=== PATIENT | female | born 1995 | race American Indian/Alaskan Native ===

== ENCOUNTER 2019-11-30 07:49 | Emergency (ER) | payer SELFPAY ==
--- NOTE | 2019-11-30 08:28 | Emergency Department Report ---
<SANDEE MORA - Last Filed: 11/30/19 10:29> ED Psych HPI - General Chief Complaint: Psych Stated Complaint: MH Time Seen by Provider: 11/30/19 08:19 Source: EMS Mode of arrival: Ambulatory - History of Present Illness Initial Comments: 24 yo F presents to ED for mental health evaluation. Per EMS, patient's father states patient has been acting bizarre for 3 last days. EMS was contacted because patient was outside this morning, yelling loudly and calling out random colors, shapes, and rapping. Patient currently able to tell me her name, , a ge. She denies hallucinations, SI, HI. Pt currently A&O x 3. Admits to recent marijuana use. Denies any other drugs. Unknown psych history. MD Complaint: altered mental status -: days(s) (3) Improves With: none Worsens With: none Context: recent drug abuse Associated Symptoms: denies other symptoms Treatments Prior to Arrival: none - Related Data Allergies Allergy/AdvReac Type Severity Reaction Status Date / Time No Known Allergies Allergy Unverified 11/30/19 08:14 ED Review of Systems Comment: All other systems reviewed and negative Psychiatric: denies: auditory hallucinations, visual hallucinations, homicidal thoughts, suicidal thoughts ED Past Medical Hx - Past Medical History Previous Medical History?: Yes Hx Psychiatric Treatment: Yes - Surgical History Past Surgical History?: No ED Physical Exam - General Limitations: Altered Mental Status General appearance: alert, in no apparent distress - Head Head exam: Present: atraumatic, normocephalic - Eye Eye exam: Present: normal appearance, EOMI - ENT ENT exam: Present: mucous membranes moist - Neck Neck exam: Present: normal inspection - Respiratory Respiratory exam: Present: normal lung sounds bilaterally. Absent: respiratory distress - Cardiovascular Cardiovascular Exam: Present: regular rate, normal rhythm - GI/Abdominal GI/Abdominal exam: Absent: distended - Extremities Exam Extremities exam: Present: normal inspection - Neurological Exam Neurological exam: Present: alert, oriented X3, CN II-XII intact. Absent: motor sensory deficit - Psychiatric Psychiatric exam: Present: normal affect, normal mood - Skin Skin exam: Present: warm, dry, intact, normal color ED Medical Decision Making - Lab Data Result diagrams: 11/30/19 08:38 11/30/19 08:38 ED Disposition Clinical Impression: Acute psychosis, Hypokalemia, Dehydration, Cannabis use disorder, severe, dependence, Schizophrenia, acute, Medical clearance for psychiatric admission Disposition: [id number]/[id number] PSY HOSP/PSY UNIT Condition: Stable Referrals: PRIMARY CARE, [Primary Care Provider] - 3-5 Days <IGNACIO GALDAMEZ - Last Filed: 12/01/19 10:54> ED Review of Systems ROS: Stated complaint: MH Other details as noted in HPI ED Course Vital Signs 11/30/19 11/30/19 12/01/19 08:10 19:45 01:35 Temperature 98.4 F 98.1 F 98.6 F Pulse Rate 79 85 100 H Respiratory 16 18 18 Rate Blood Pressure 114/76 131/79 120/60 [Left] O2 Sat by Pulse 99 99 100 Oximetry 12/01/19 12/01/19 07:32 08:09 Temperature 98.2 F Pulse Rate 88 Respiratory 20 20 Rate Blood Pressure 138/84 [Left] O2 Sat by Pulse 100 100 Oximetry - Reevaluation(s) Reevaluation #1: 12/01/19 07:50 Nurse Elvia approached me that [facility] cannot place patient due to mild elevation WBC count and hypokalemia. Patient received p.o. potassium 60 mEq p.o. x1 yesterday. Urine appears to show signs of dehydration given elevated specific gravity and ketosis. Urine negative for infection. Patient is afebrile here. However, chest x-ray ordered to rule out acute infection I ordered additional p.o. potassium 40 mEq this a.m. ED physician and mental alth dextrine mixer notes reviewed. This appears to be new onset psychosis without reported history of psychiatric disease. CT head ordered. Additional p.o. potassium ordered with repeat CBC, BMP, and magnesium to be performed. 12/01/19 10:53 After IV hydration and p.o. potassium repeat CBC is normal. BMP and magnesium are normal. There are no signs of active infection. Chest x-ray is normal. An d CT head is unremarkable. [facility] requested a signed 1013. Patient is medically clear for psychiatric admission ED Medical Decision Making - Lab Data Result diagrams: 12/01/19 09:43 12/01/19 09:43 - Radiology Data Radiology results: report reviewed CHEST 2 VIEWS INDICATION: new onset psychosis, mild wbc incr. COMPARISON: None available FINDINGS: Support devices: None. Heart: Within normal limits. Lungs/pleura: No acute air space or interstitial disease. No pneumothorax. Additional findings: None. IMPRESSION: Normal chest x-ray CT HEAD WITHOUT CONTRAST INDICATION / CLINICAL INFORMATION: new onset psychosis. TECHNIQUE: Axial imaging performed from the skull apex through the skull base without the use of contrast. Sagittal and coronal reformatted images. All CT scans at this location are performed us ing CT dose reduction for ALARA by means of automated exposure control. COMPARISON: None available. FINDINGS: CEREBRAL PARENCHYMA: No significant abnormality. No acute territorial infarct. HEMORRHAGE: None. EXTRA-AXIAL SPACES: Normal in size and morphology for the patient's age. VENTRICULAR SYSTEM: Normal in size and morphology for the patient's age. MIDLINE SHIFT OR HERNIATION: None. CEREBELLUM / BRAINSTEM: No si gnificant abnormality. CALVARIUM: No significant abnormality. ORBITS: Normal as visualized. PARANASAL SINUSES / MASTOID AIR CELLS: Normal as visualized. SOFT TISSUES of HEAD: No significant abnormality. ADDITIONAL FINDINGS: None. IMPRESSION: Normal CT brain. Critical care attestation.: If time is entered above; I have spent that time in minutes in the direct care of this critically ill patient, excluding procedure time. ED Disposition Is pt being admited?: No Does the pt Need Aspirin: No
[2019-11-30 08:54] LABS: Basophils # (Auto) 0.1 K/mm3 (0.0-0.1); Basophils % (Auto) 0.6 % (0.0-1.8); Eosinophils % (Auto) 0.2 % (0.0-4.3); Hematocrit 39.7 % (30.3-42.9); Lymphocytes # (Auto) 1.9 K/mm3 (1.2-5.4); Lymphocytes % (Auto) 13.9 % (13.4-35.0); Mean Corpuscular HGB Conc 33 % (30-34); Mean Corpuscular Volume 86 fl (79-97); Monocytes # (Auto) 0.9 K/mm3 (0.0-0.8); Monocytes % (Auto) 6.6 % (0.0-7.3); Platelet Count 238 K/mm3 (140-440); Red Blood Count 4.63 M/mm3 (3.65-5.03); Red Cell Distribution Width 13.8 % (13.2-15.2)
[2019-11-30 09:14] LABS: BUN/Creatinine Ratio 13; Blood Urea Nitrogen 9 mg/dL (7-17); Hemolysis Index 3
[2019-11-30] MEDS ORDERED: POTASSIUM CHLORIDE ER 20 MEQ TAB PO ONE (09:22)
[2019-11-30 10:50] LABS: Bilirubin,Urine NEG (Negative); Blood,Urine SM (Negative); Color,Urine Amber (Yellow); Mucus,Urine 3+ /HPF
[2019-11-30 10:57] LABS: Amphetamine Screen,Urine PRESUMPTIVE NEGATIVE; Benzodiazepines Screen,Urine PRESUMPTIVE NEGATIVE; Cocaine Screen,Urine PRESUMPTIVE NEGATIVE; Methadone Screen,Urine PRESUMPTIVE NEGATIVE; Opiate Screen,Urine PRESUMPTIVE NEGATIVE
[2019-11-30 11:28] LABS: Cannabinoid Screen,Urine PRESUMPTIVE POSITIVE
[2019-11-30] MEDS ORDERED: LORazepam 2 MG/ML VIAL IM ONE (15:54)
[2019-12-01] MEDS ORDERED: POTASSIUM CHLORIDE ER 20 MEQ TAB PO ONE (07:44)
[2019-12-01] MEDS ORDERED: SODIUM CHLORIDE 0.9% 1000 ML 1,000 ML IV ONE (07:46)
--- NOTE | 2019-12-01 08:06 | XRay Report ---
CHEST 2 VIEWS INDICATION: new onset psychosis, mild wbc incr. COMPARISON: None available FINDINGS: Support devices: None. Heart: Within normal limits. Lungs/pleura: No acute air space or interstitial disease. No pneumothorax. Additional findings: None. IMPRESSION: Normal chest x-ray Signer Name: Eleno Banerjee Jr, MD Signed: 12/01/2019 8:02 AM Workstation Name: [id number]
--- NOTE | 2019-12-01 08:53 | Cat Scan Report ---
CT HEAD WITHOUT CONTRAST INDICATION / CLINICAL INFORMATION: new onset psychosis. TECHNIQUE: Axial imaging performed from the skull apex through the skull base without the use of cont rast. Sagittal and coronal reformatted images. All CT scans at this location are performed using CT dose reduction for ALARA by means of automated exposure control. COMPARISON: None available. FINDINGS: CEREBRAL PARENCHYMA: No significant abnormality. No acute territorial infarct. HEMORRHAGE: None. EXTRA-AXIAL SPACES: Normal in size and morphology for the patient's age. VENTRICULAR SYSTEM: Normal in size and morphology for the patient's age. MIDLINE SHIFT OR HERNIATION: None. CEREBELLUM / BRAINSTEM: No significant abnormality. CALVARIUM: No significant abnormality. ORBITS: Normal as visualized. PARANASAL SINUSES / MASTOID AIR CELLS: Normal as visualized. SOFT TISSUES of HEAD: No significant abnormality. ADDITIONAL FINDINGS: None. IMPRESSION: Normal CT brain. Signer Name: Eleno Banerjee Jr, MD Signed: 12/01/2019 8:49 AM Workstation Name: [id number]
--- NOTE | 2019-12-01 10:03 | Consultation ---
History of Present Illness - Reason for Consult Consult date: 12/01/19 Reason for consult: MHE Requesting physician: SANDEE MORA - Chief Complaint Chief complaint: Bizarre Behavior - History of Present Psychiatric Illness Per ED provider Note: 24 yo F presents to ED for mental health evaluation. Per EMS, patient's father states patient has been acting bizarre for 3 last days. EMS was contacted because patient was outside this morning, yelling loudly and calling out random colors, shapes, and rapping. Patient currently able to tell me her name, , age. She denies hallucinations, SI, HI. Pt currently A&O x 3. Admits to recent marijuana use. Denies any other drugs. Unknown psych history. Per [facility]: Pt is a 24 yo AA female presenting to ED for MHE, as collateral reported acute psychosis. During ax, pt presented as hyperverbal, with cooperative behaviors, anxious mood and incongruent affect. Pt reports that she is at [facility] due to "an interrupted cycle in her work life". Pt unable to identify triggers or explain why she is in the ED. Pt denies hx of attempts. Pt denies HI. Pt denies A/V H. Pt denies hx of mental health dx. According to collateral, pt was missing from home for three days. When the pt returned, she was shouting out shapes, screaming, and rapping. Pt reports using marijuana. Onset, use, and duration unknown. Pt reports using alcohol but states "I like the marijuana better". identified heroine abuse, reporting less than one gram daily. Pt reports onset age of 19. Pt identified cocaine abuse; unknown amount daily. Pt reports living with her father. Pt reports employment with [email or web address]. Psych HPI Patient is a 24-year-old single employed -[place] female with past psychiatric history of depression, anxiety and bipolar status post medication noncompliance who presented to the ED with with family with chief complaint of bizarre behavior. Patient states that she is here because she displayed certain characteristic type of behavior that other people are not familiar with. She reports yesterday, she put on some very nice shoes and colorful dresses and did not know where she was going, noting that she was also hearing voices and other things like people giving her directions. She also reports seeing things snapping into 2 places. Patient recollects that she was in a type of mental state the most people do not understand. Patient reports she was feeling wonderful but now she feels peaceful. 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 She reports lots of random thoughts, says she is easily distracted because she get bored quite often, denies any changes in traction denies any guilty feelings. Patient endorses poor sleep and appetite. Patient reports she has indeed in the past been prescribed some psychiatric medication but has not been taking it because she feels like the process of getting something that is supposed to help you was just too much hence why she takes marijuana instead PAST PSYCHIATRIC HISTORY Diagnoses: Depression, anxiety and Bipolar Suicide attempts or Self-harm behavior: Yes, took many pills Prior psychiatric hospitalizations: Yes Substance Abuse history: Marijuana Previous psychiatric medications tried: Unknwn/non compliant Outpatient treatment: None reported PAST MEDICAL HISTORY: None Family Psychiatric History: None reported or documented SOCIAL HISTORY Marital Status: Single Living Arrangements: Lives with family Employment Status: employed forepart [employer] Access to guns/weapons: None Education: High school History of Abuse: Emotional (family) Legal History: None REVIEW OF SYSTEMS Constitutional: Negative for weight loss ENT: Negative for stridor Respiratory: Negative for cough or hemoptysis All other systems reviewed and are negative MENTAL STATUS EXAMINATION General Appearance and Behavior: Age appropriate, good hygiene, wearing appropriate clothes, lying in bed, good eye contact, cooperative with questioning and polite Cooperation: Participating/engaged, Cooperative Psychomotor Behavior: unremarkable and within normal limits Mood: Wonderful and now peaceful Affect and affective range: Euthymic Thought Process: Loose associations Thought Content: Flight of ideas, Illogical, Grandiose, and delusions Speech: low volume, Regular rate and rhythm Intellectual Functioning: Average Suicidal Ideation: Denies SI Homicidal Ideation: Denies HI Impulse Control: Unimpaired Insight and Judgment: Limited insight and judgment, Impaired Memory: Normal Attention: Normal Orientation: Alert, oriented Assessment and Plan - Psychiatric problem (1) Substance induced mood disorder Current Visit: Yes Status: Acute (2) Cannabis use disorder, severe, dependence Current Visit: Yes Status: Acute (3) Schizophrenia, acute Current Visit: Yes Status: Acute RECOMMENDATIONS MEDICATIONS: Started on Abilify 10 mg QD Risks, benefits and alternatives of medications discussed with the patient, questions answered and consent obtained from patient. PSYCHOTHERAPY: Supportive psychotherapy provided MEDICAL: Per primary team DELIRIUM PRECAUTIONS: Please re-orient patient frequently, keep lights on during the day, and minimize benzodiazepines and opiates as these medications could worsen patient's confusion. BEADER TENDER: Per Medical team DISPOSITION: Recommends acute inpatient psychiatric hospitalization at this time LEGAL STATUS: 1013 FOLLOW-UP: Will follow Thank you for the consult. Please contact with any questions and/or concerns. Medications and Allergies Allergies Allergy/AdvReac Type Severity Reaction Status Date / Time No Known Allergies Allergy Unverified 11/30/19 08:14 Mental Status Exam - Vital signs Last Vital Signs Temp 98.2 F 12/01/19 07:32 Pulse 88 12/01/19 07:32 Resp 20 12/01/19 08:09 BP 138/84 12/01/19 07:32 Pulse Ox 100 12/01/19 08:09 Results Result Diagrams: 11/30/19 08:38 11/30/19 08:38 Abnormal lab results 11/30/19 Range/Units 10:35 Ur Specific [place] 1.032 H (1.003-1.030) All other labs normal. Assessment and Plan - Psychiatric problem (1) Substance induced mood disorder Current Visit: Yes Status: Acute (2) Cannabis use disorder, severe, dependence Current Visit: Yes Status: Acute (3) Schizophrenia, acute Current Visit: Yes Status: Acute
[2019-12-01 10:15] LABS: Hematocrit 37.3 % (30.3-42.9); Hemoglobin 12.2 gm/dl (10.1-14.3); Mean Corpuscular HGB Conc 33 % (30-34); Mean Corpuscular Volume 87 fl (79-97); Platelet Count 208 K/mm3 (140-440); Red Blood Count 4.32 M/mm3 (3.65-5.03); Red Cell Distribution Width 13.8 % (13.2-15.2)
[2019-12-01 10:33] LABS: BUN/Creatinine Ratio 11; Blood Urea Nitrogen 8 mg/dL (7-17); Calcium 9.4 mg/dL (8.4-10.2); Hemolysis Index 10
[2019-12-01] MEDS: ARIPiprazole 10 MG TAB PO SCH (11:59)
[2019-12-02] MEDS: ARIPiprazole 10 MG TAB PO SCH (09:29)
[2019-12-02] MEDS ORDERED: ZIPRASIDONE MESYLATE 20 MG VIAL IM ONE (09:49)
[2019-12-02] MEDS ORDERED: WATER FOR INJ Sterile (PF) 10 ML ONE (09:52)
--- NOTE | 2019-12-02 14:16 | Progress Note ---
Subjective - Reason for Consult Consult date: 12/02/19 Reason for consult: psychosis - Chief Complaint Chief complaint: The patient's medical record was reviewed and the patient's progress was discussed with the nursing staff. During my interview with the patient today, she is lying in the bed. She makes fair eye contact. She is a/o x 3. She repeats some questions back to me before answering. She is responding to internal stimuli. She tells me she came to the ER because she was "looking for an evaluation." She describes her mood as, "calm, cool." When asked about suicidal thoughts, the patient replied, "today I'm suicidal. I've cried. My emotions are everywhere." She then says, "I need stabilizing treatment." The patient says "I see numbers and hear voices. They are guiding me." She then places her head in her hands and says, "what are you telling me." She then says, "they are telling me to hurt people, but mostly myself because I'm the problem." She says she is "restless and can't sleep." She says she "doesn't have an appetite." REVIEW OF SYSTEMS Constitutional: Negative for weight loss ENT: Negative for stridor Respiratory: Negative for cough or hemoptysis All other systems reviewed and are negative MENTAL STATUS EXAMINATION General Appearance: Dressed appropriately Behavior: Calm, cooperative Mood: "calm, chill" Affect: Congruent with stated mood Speech: Normal tone and pace Thought Process: responding to internal stimuli Thought Content: Suicidal Ideation: Yes Homicidal Ideation: Denies Hallucinations: Auditory/Visual, command Delusions: None elicited Insight and Judgment: Limited Memory/Cognition: Limited Assessment Schizoaffective Disorder Plan MEDICATIONS: Increased Abilify 15mg po daily Prozac 10mg po daily Trazodone 50mg po qhs Melatonin 5mg po qhs prn insomnia Geodon 10mg IM q4h prn agitation Risks, benefits and alternatives of medications discussed with the patient, questions answered and consent obtained from patient. PSYCHOTHERAPY: Supportive psychotherapy provided MEDICAL: Per primary team DELIRIUM PRECAUTIONS: Please re-orient patient frequently, keep lights on during the day, and minimize benzodiazepines and opiates as these medications could worsen patient's confusion. DEPUTY BAILIFF: Per Medical team. DISPOSITION: The patient meets the requirement for acute inpatient psychiatric hospitalization at this time. She may transfer to an acute psychiatric facility once medically clear. Will continue to follow until the patient is transferred or her condition improves enough for discharge Thank you for the consult. Please contact with any questions or concerns. Mental Status Exam - Vital signs Last Vital Signs Temp 99.2 F 12/02/19 09:12 Pulse 115 H 12/02/19 09:12 Resp 18 12/02/19 09:13 BP 146/76 12/02/19 09:12 Pulse Ox 96 12/02/19 09:13
[2019-12-02] MEDS ORDERED: MELATONIN 5 MG TAB PO PRN (14:25)
[2019-12-02] MEDS ORDERED: ZIPRASIDONE MESYLATE 20 MG VIAL IM PRN (14:25)
[2019-12-02] MEDS ORDERED: ARIPiprazole 10 MG TAB PO SCH (14:26)
[2019-12-02] MEDS ORDERED: FLUoxetine 10 MG TAB PO SCH (15:00)
[2019-12-02] MEDS ORDERED: LORazepam 2 MG/ML VIAL IM STA (15:43)
[2019-12-02 20:02] VITALS: BP 146/98
[2019-12-02] MEDS ORDERED: traZODone 50 MG TAB PO SCH (22:00)
== END 2019-12-03 08:36 ==
LOC: ED 07:49
DX: F23 Brief psychotic disorder (principal); E87.6 Hypokalemia; E86.0 Dehydration; F14.20 Cocaine dependence, uncomplicated; Z04.6 Encounter for general psychiatric examination, requested by authority
CPT/HCPCS: 36415; 70450; 71046; 80048; 80307; 81001; 83735; 84703; 85025; 85027; 96360; 96372; 99285; J2060; J7030; 80320; G0480